=== PATIENT | male | born 1990 | race Caucasian/White ===

== ENCOUNTER 2016-09-09 18:37 | Emergency (ER) | payer SELFPAY ==
[~2016-09-09 18:37] MED LIST: FLEXERIL10 MG PO; MOTRIN IB200 MG; NO MEDS; NORCO 5/325 TAB1 TAB PO
[2017-02-07] MEDS ORDERED: CYCLOBENZAPRINE5 M1 PO (21:19)
[2017-02-07] MEDS ORDERED: ZOFRAN4 M2 PO (21:19)
== END 2016-09-09 20:36 | disposition left against medical advice (07) ==
LOC: EDMED 18:37
DX: J02.9 Acute pharyngitis, unspecified (principal); Z53.21 Procedure and treatment not carried out due to patient leaving prior to being seen by health care provider

== ENCOUNTER 2016-09-09 21:12 | Emergency (ER) | payer SELFPAY ==
[2017-02-07] MEDS ORDERED: CYCLOBENZAPRINE5 M1 PO (21:19)
[2017-02-07] MEDS ORDERED: ZOFRAN4 M2 PO (21:19)
== END 2016-09-09 22:23 ==
LOC: EDMED 21:12
DX: J02.9 Acute pharyngitis, unspecified (principal); F17.200 Nicotine dependence, unspecified, uncomplicated

== ENCOUNTER 2016-10-17 08:26 | Emergency (ER) | payer SELFPAY ==
[2016-10-17] MEDS ORDERED: NAPROSYN500 M1 PO (10:20)
[2017-02-07] MEDS ORDERED: ZOFRAN4 M2 PO (21:19)
[2017-02-07] MEDS ORDERED: CYCLOBENZAPRINE5 M1 PO (21:19)
[2017-03-12] MEDS ORDERED: [UNRECOGNIZED DRUG - REMARK] PO (05:34)
[2017-03-12] MEDS ORDERED: PAMELOR25 M1 PO (08:50)
[2017-03-12] MEDS ORDERED: COMPAZINE10 MG PO (10:02)
[2017-03-12] MEDS ORDERED: PRILOSEC OTC20 M1 PO (10:02)
[2017-03-12] MEDS ORDERED: KEFLEX500 M4 PO (10:02)
== END 2016-10-17 10:39 ==
LOC: EDMED 08:26
DX: S46.912A Strain of unspecified muscle, fascia and tendon at shoulder and upper arm level, left arm, initial encounter (principal); X58.XXXA Exposure to other specified factors, initial encounter; Y92.69 Other specified industrial and construction area as the place of occurrence of the external cause; Y99.0 Civilian activity done for income or pay